=== PATIENT | male | born 1970 | race African-American/Black ===

== ENCOUNTER 2023-07-11 08:03 | Day surgery (SDC) | payer OTHER ==
[2023-07-09 13:33] VITALS: BMI 35.9
[2023-07-11 09:41] VITALS: TEMP 98
[2023-07-11 09:43] VITALS: BP 131/67; PULSE 75; RESP 18
== END 2023-07-11 10:01 | disposition home or self-care (01) ==
LOC: FASU-ENDO 08:03
PROVIDERS: ATTEND Internal Medicine Gastroenterology
PROC: 0DBH8ZX Excision of Cecum, Via Natural or Artificial Opening Endoscopic, Diagnostic (ICD-10-PCS; principal; 2023-07-11 09:00)
DX: Z12.11 Encounter for screening for malignant neoplasm of colon (principal); K63.5 Polyp of colon
CPT/HCPCS: 88305-TC